=== PATIENT | male | born 1975 | race Caucasian/White ===

== ENCOUNTER → 2021-09-17 16:10 | Outpatient (BNVA) | payer BC, SELFPAY | PROVIDERS: Visit Provider Family Medicine | DX: I10 Essential (primary) hypertension (principal); N52.9 Male erectile dysfunction, unspecified | CPT/HCPCS: 80053; 84154; 84402; 84443; 85025 ==

== ENCOUNTER → 2021-10-20 14:59 | Outpatient (BNVA) | payer BC, SELFPAY | PROVIDERS: Visit Provider Family Medicine | DX: I10 Essential (primary) hypertension (principal); Z13.220 Encounter for screening for lipoid disorders; Z13.6 Encounter for screening for cardiovascular disorders; N52.9 Male erectile dysfunction, unspecified | CPT/HCPCS: 80061 ==

== ENCOUNTER → 2022-02-09 13:38 | Outpatient (BNVA) | payer BC, SELFPAY | PROVIDERS: Visit Provider Family Medicine | DX: I10 Essential (primary) hypertension (principal); Z13.220 Encounter for screening for lipoid disorders; Z13.6 Encounter for screening for cardiovascular disorders; N52.9 Male erectile dysfunction, unspecified; E78.2 Mixed hyperlipidemia | CPT/HCPCS: 80053; 80061 ==

== ENCOUNTER → 2022-08-10 13:48 | Outpatient (BNVA) | payer BC, SELFPAY | PROVIDERS: Visit Provider Family Medicine | DX: E78.2 Mixed hyperlipidemia (principal); I10 Essential (primary) hypertension; N52.9 Male erectile dysfunction, unspecified; F17.228 Nicotine dependence, chewing tobacco, with other nicotine-induced disorders | CPT/HCPCS: 80053; 80061; 84153 ==

== ENCOUNTER → 2023-05-24 13:47 | Outpatient (BNVA) | payer BC, SELFPAY | PROVIDERS: PCP Family Medicine; Visit Provider Family Medicine | DX: E78.2 Mixed hyperlipidemia (principal); I10 Essential (primary) hypertension; N52.9 Male erectile dysfunction, unspecified; H93.13 Tinnitus, bilateral; E29.1 Testicular hypofunction; R79.89 Other specified abnormal findings of blood chemistry | CPT/HCPCS: 80053; 80061; 83001; 84146; 84403; 85025; G0103 ==

== ENCOUNTER → 2023-05-30 11:01 | Outpatient (BNVA) | payer BC, SELFPAY | PROVIDERS: PCP Family Medicine; Visit Provider Nurse Practitioner Family | DX: M25.532 Pain in left wrist (principal) | CPT/HCPCS: 73110 ==

== ENCOUNTER → 2023-12-13 09:15 | Outpatient (BNVA) | payer BC, SELFPAY | PROVIDERS: PCP Family Medicine; Visit Provider Family Medicine | DX: I10 Essential (primary) hypertension (principal); R79.89 Other specified abnormal findings of blood chemistry; E29.1 Testicular hypofunction; E78.2 Mixed hyperlipidemia; N52.9 Male erectile dysfunction, unspecified; Z12.5 Encounter for screening for malignant neoplasm of prostate; E55.9 Vitamin D deficiency, unspecified; R53.82 Chronic fatigue, unspecified; G47.10 Hypersomnia, unspecified; R40.0 Somnolence; Z12.11 Encounter for screening for malignant neoplasm of colon | CPT/HCPCS: 80053; 80061; 82306; 83036; 84403; 84443; 85025; G0103 ==

== ENCOUNTER 2024-01-04 10:22 | Day surgery (SDC) | payer BC, SELFPAY ==
[2024-01-04 10:32] VITALS: BP 142/87; PULSE 61; RESP 18; TEMP 36.2; O2SAT 96
--- NOTE | 2024-01-04 10:38 | ANES.PREANE2 ---
Pre-Anesthetic Assessment Height/Weight: Height 1.8 m Weight 145.15 kg Temp Pulse Resp BP Pulse Ox O2 Del Method 97.2 F L 61 18 142/87 96 Room Air 01/04/24 10:32 01/04/24 10:32 01/04/24 10:32 01/04/24 10:32 01/04/24 10:32 01/04/24 10:32 Preop Diagnosis: screening colonoscopy Operation Date: 01/04/24 11:30 Proposed Procedures p 25835 colon G0121 screen colon A risk Z12.11(Not Applicable) - Yayo Noe DO Familial anesthetic complications: None Was Beta Perry taken within 24 hours: N/A Was Clonidine taken within 24 hours: N/A Last intake: Intake Last Liquid Date 01/03/24 Last Liquid Time 22:30 Last Solid Date 01/02/24 Last Solid Time 20:00 Social No alcohol and No tobacco Chews tobacco pack(s) per day Exam alert, oriented x 3, clear to auscultation bilaterally and regular rate & rhythm Airway Submandibular: within normal limits Cervical ROM: within normal limits Mallampati: Class III Dentition: caps History/ROS No significant history except as noted Pulmonary None reported CV/HEM Hypertension None reported Hepatic None reported GI None reported Metabolic Morbid Obesity [facility] None reported Neuropsych None reported Anesthetic Plan ASA status: 3 Anesthesia: Anesthesia Evaluation and MAC Risk of > 500 ml blood loss (7ml/kg in children): No Medications/Allergies Home Medications Medication Instructions Recorded Confirmed Last Taken Type syringe with needle, safety 3 mL #100 ea 06/09/23 01/04/24 Unknown Rx 25 gauge x 5/8 (Monoject Safety Syringes) amlodipine 10 mg tablet 10 mg PO DAILY #90 tabs 12/13/23 01/02/24 01/04/24 Rx atorvastatin 40 mg tablet 40 mg PO DAILY #90 tabs 12/13/23 01/02/24 01/04/24 Rx chlorthalidone 25 mg tablet 25 mg PO DAILY #90 tabs 12/13/23 01/02/24 01/04/24 Rx tadalafil 20 mg tablet 20 mg PO DAILY #30 tabs 12/13/23 01/02/24 2 Weeks Ago Rx ~12/19/23 testosterone cypionate 200 mg/mL 100 mg (0.5 mL) SUBCUT Q7D #10 mL 12/13/23 01/02/24 12/26/23 Rx intramuscular oil (Depo-Testosterone) Allergies Allergy/AdvReac Type Severity Reaction Status Date / Time No Known Allergies Allergy Verified 01/04/24 10:39 [facility] Anesthesia Social History Smoking and tobacco/nicotine status: never used tobacco/nicotine Alcohol intake: never Substance/Drug Use: never Data Anesthesia Cardiac Studies: No Data to Display
[2024-01-04] MEDS: sodium chloride 0.9% 1,000 ML 30 ML IV (10:41)
--- NOTE | 2024-01-04 10:52 | W.PM.OPSUD ---
Surgery/Procedure H&P Update DATE OF PROCEDURE: January 04, 2024 DATE H&P PERFORMED: 12/21/23 H&P UPDATE INFORMATION: I have reviewed H&P completed within last 30 days, I have examined patient prior to procedure and No changes to prior documentation PREOP DIAGNOSIS: screening colonoscopy PLANNED PROCEDURE: Operation Date: 01/04/24 11:30 Proposed Procedures p 07282 colon G0121 screen colon A risk Z12.11(Not Applicable) - Yayo Noe, DO
[2024-01-04 11:22] VITALS: BP 122/85; PULSE 58; RESP 18; TEMP 36.1; O2SAT 95
[2024-01-04 11:41] VITALS: BP 125/63; PULSE 55; RESP 16; O2SAT 93
--- NOTE | 2024-01-04 11:50 | ANE.PACU2 ---
Inpatient post-anesthesia follow up: Airway intact: Yes Vital signs: Temperature 97.0 F Pulse Rate 55 Respiratory Rate 16 Blood Pressure 125/63 Pulse Oximetry 93 Oxygen Delivery Me thod Room Air Oxygen Flow Rate Fraction of Inspir ed Oxygen Hydration adequate: Yes Nausea and vomiting: No Pain level: 1 Mental status: Baseline
== END 2024-01-04 11:53 | disposition home or self-care (01) ==
PROVIDERS: PCP Family Medicine; Visit Provider Surgery
PROC: 0DJD8ZZ Inspection of Lower Intestinal Tract, Via Natural or Artificial Opening Endoscopic (ICD-10-PCS; CPT 45378; principal; 2024-01-04 11:30)
DX: Z12.11 Encounter for screening for malignant neoplasm of colon (principal); K64.8 Other hemorrhoids; F17.220 Nicotine dependence, chewing tobacco, uncomplicated; I10 Essential (primary) hypertension; E66.01 Morbid (severe) obesity due to excess calories; Z68.41 Body mass index [BMI] 40.0-44.9, adult
CPT/HCPCS: 45378; J2704; J7030

== ENCOUNTER 2024-06-19 20:00 | Outpatient (CLI) | payer BC, SELFPAY | END 2024-06-19 20:01 | disposition home or self-care (01) | LOC: SLEEP 21:58 | PROVIDERS: PCP Family Medicine; Visit Provider Family Medicine | DX: R40.0 Somnolence (principal); G47.10 Hypersomnia, unspecified; I10 Essential (primary) hypertension | CPT/HCPCS: 95810 ==

== ENCOUNTER 2024-06-20 04:41 | Outpatient (CLI) | payer BC, SELFPAY ==
[2024-06-20 05:27] LABS: Testosterone Total 428.5 ng/dL (249-836)
== END 2024-06-20 04:42 | disposition home or self-care (01) ==
PROVIDERS: PCP Family Medicine; Visit Provider Family Medicine
DX: R79.89 Other specified abnormal findings of blood chemistry (principal); E29.1 Testicular hypofunction
CPT/HCPCS: 36415; 84403

== ENCOUNTER 2024-11-07 20:00 | Outpatient (CLI) | payer BC, SELFPAY | END 2024-11-07 20:01 | disposition home or self-care (01) | LOC: SLEEP 23:52 | PROVIDERS: PCP Family Medicine; Visit Provider Family Medicine | DX: G47.33 Obstructive sleep apnea (adult) (pediatric) (principal); Z99.89 Dependence on other enabling machines and devices | CPT/HCPCS: 95811 ==

== ENCOUNTER → 2025-03-04 09:30 | Outpatient (BNVA) | payer BC, SELFPAY | PROVIDERS: PCP Family Medicine; Visit Provider Family Medicine | DX: E29.1 Testicular hypofunction (principal); I10 Essential (primary) hypertension; E78.2 Mixed hyperlipidemia; G47.33 Obstructive sleep apnea (adult) (pediatric); E55.9 Vitamin D deficiency, unspecified; Z12.5 Encounter for screening for malignant neoplasm of prostate; R79.89 Other specified abnormal findings of blood chemistry | CPT/HCPCS: 80053; 80061; 82306; 82607; 84403; 84443; 85025; G0103 ==

== ENCOUNTER → 2025-10-29 14:30 | Outpatient (BNVA) | payer BC, SELFPAY | PROVIDERS: PCP Family Medicine; Visit Provider Family Medicine | DX: I10 Essential (primary) hypertension (principal); R73.9 Hyperglycemia, unspecified; E29.1 Testicular hypofunction; Z12.5 Encounter for screening for malignant neoplasm of prostate | CPT/HCPCS: 80053; 82607; 83036; 84403; 84443; 85025; G0103 ==